=== PATIENT | female | born 1965 | race Caucasian/White ===

== ENCOUNTER 2018-08-08 12:00 | Day surgery (SDC) | payer BC ==
[~2018-08-08] VITALS: Ht 170.2 cm; Wt 59.0 kg
[2018-08-08 00:09] LABS: BILIRUBIN,URINE NEGATIVE (NEGATIVE); BLOOD, URINE 3+ (NEGATIVE); CLARITY/URINE SL HAZY (CLEAR); COLOR,URINE YELLOW (YELLOW); GLUCOSE,URINE NEGATIVE (NEGATIVE); KETONES,URINE NEGATIVE (NEGATIVE); LEUKOCYTE ESTERASE ,URINE NEGATIVE (NEGATIVE); NITRITE, URINE NEGATIVE (NEGATIVE); PROTEIN URINE 1+ (NEGATIVE); UROBILINOGEN,URINE 0.2 (0.2-1.0)
[2018-08-08 00:10] LABS: CALCIUM 8.7 mg/dL (8.4-11.0); CREATININE 0.92 mg/dL (0.55-1.30); NEUTROPHILS # (AUTO) 1.9 K/uL (1.8-7.7); RED CELL DISTRIBUTION WIDTH 12.1 % (9.0-15.0)
[2018-08-08 00:13] LABS: BASOPHILS % (AUTO) 0.9 % (0.0-2.0); HEMATOCRIT 39.4 % (36-48); HEMOGLOBIN 13.5 g/dL (12.0-16.0); LYMPHOCYTES # (AUTO) 1.1 K/uL (1.0-5.5); LYMPHOCYTES % (AUTO) 33.3 % (20.5-51.5); MEAN CORPUSCULAR HEMOGLOBIN 32 pg (27-31); MEAN CORPUSCULAR HGB CONC 34 % (32-36); MEAN CORPUSCULAR VOLUME 92 fL (79.0-98.0); MONOCYTES # (AUTO) 0.3 K/uL (0.0-1.0); MONOCYTES % (AUTO) 10.2 % (1.7-9.3); NEUTROPHILS % (AUTO) 54.6 % (40.0-70.0); PLATELET COUNT (AUTO) 261 K/uL (130-430); RED BLOOD CELL COUNT(AUTO) 4.28 MIL/uL (4.2-6.2); WHITE BLOOD COUNT (AUTO) 3.3 K/uL (4.8-10.8)
[2018-08-08 00:22] LABS: POTASSIUM 2.8 mmol/L (3.5-5.1)
[2018-08-08 00:32] LABS: BACTERIA,URINE FEW /HPF (None Seen); RBC,URINE 20-50 /HPF (0-3); WBC,URINE 0-3 /HPF (0-3)
[2018-08-08 00:33] LABS: CALCIUM OXALATE CRYSTALS,UR 0-10 /HPF (None Seen)
[~2018-08-08 12:00] MED LIST: CEFAZOLIN 1 GM IVPB PREMIX 50 ML IV ONE
[2018-08-08] MEDS ORDERED: NEOSTIGMINE METHYLSULFATE 1 MG/ML, 10 ML VIAL IVP ONE (12:45)
[2018-08-08] MEDS ORDERED: MEPERIDINE HCL/PF 100 MG/ML AMP IM ONE (12:45)
[2018-08-08] MEDS ORDERED: ONDANSETRON HCL 4 MG/2 ML VIAL IVP ONE ×2 (12:45)
[2018-08-08] MEDS ORDERED: ROCURONIUM BROMIDE 10 MG/ML (ZEMURON) IV ONE (12:45)
[2018-08-08] MEDS ORDERED: KETOROLAC TROMETHAMINE 30 MG VIAL IVP ONE (12:45)
[2018-08-08] MEDS ORDERED: GLYCOPYRROLATE 0.2 MG/ML VIAL IJ ONE (12:45)
[2018-08-08] MEDS ORDERED: MIDAZOLAM HCL 5 MG/5 ML VIAL IVP ONE (12:45)
[2018-08-08] MEDS ORDERED: BUPIVACAINE /EPINEPHRINE/PF 0.5% 30 ML VIAL INJ ONE (12:45)
[2018-08-08] MEDS ORDERED: LIDOCAINE 2%, 20 ML MDV INJ ONE (12:45)
[2018-08-08] MEDS ORDERED: NS IRRIG SOLN 1000 ML IR ONE (12:45)
[2018-08-08] MEDS ORDERED: BUPIVACAINE /PF 0.5% 30 ML VIAL INJ ONE (12:45)
[2018-08-08] MEDS ORDERED: SEVOFLURANE 15 MIN GAS INH ONE (12:45)
[2018-08-08] MEDS ORDERED: PROPOFOL 200MG/ 20ML VIAL (DIPRIVAN) IV ONE (12:45)
[2018-08-08] MEDS ORDERED: DEXAMETHASONE SOD PHOSPHATE 4 MG/ML VIAL IVP ONE (12:45)
[2018-08-08] MEDS ORDERED: LR 1,000 ML IV.SOLN IV ONE (12:45)
[2018-08-08] MEDS ORDERED: fentaNYL CITRATE/PF 100 MCG/2 ML AMP IVP ONE (12:45)
[2018-08-08] MEDS ORDERED: KETOROLAC TROMETHAMINE 30 MG VIAL IVP PRN (13:30)
[2018-08-08] MEDS ORDERED: fentaNYL CITRATE/PF 100 MCG/2 ML AMP IVP PRN ×2 (13:30)
[2018-08-08] MEDS ORDERED: ONDANSETRON HCL 4 MG/2 ML VIAL IVP PRN (13:30)
[2018-08-08] MEDS ORDERED: ROPIVACAINE 0.2% 100 ML ONE ×2 (17:30→17:40)
[2018-08-08] MEDS ORDERED: MIDAZOLAM HCL 2 MG/2 ML VIAL (VERSED) ONE (17:30)
[2018-08-08] MEDS ORDERED: fentaNYL CITRATE/PF 100 MCG/2 ML AMP ONE (18:04)
[2018-08-08 18:25] VITALS: BP_SYST 126
[2018-08-08] MEDS ORDERED: NALOXONE HCL 2 MG/2 ML SYR IVP ONE (18:30)
== END 2018-08-08 18:50 | disposition home or self-care (01) ==
LOC: SDS 12:00 → SMU 12:07 → SDS 18:50
PROVIDERS: ATTEND Specialist
DX: N83.8 Other noninflammatory disorders of ovary, fallopian tube and broad ligament (principal); N81.10 Cystocele, unspecified; N81.6 Rectocele; Z90.710 Acquired absence of both cervix and uterus; Z98.890 Other specified postprocedural states; Z79.899 Other long term (current) drug therapy; E03.9 Hypothyroidism, unspecified; Z82.49 Family history of ischemic heart disease and other diseases of the circulatory system; Z80.3 Family history of malignant neoplasm of breast
CPT/HCPCS: 36415; 57260; 58661; 80048; 81000; 85025; 88305; J0690; J1100; J1885; J2001; J2175; J2250; J2310; J2405; J2704; J2710; J2795; J3010; J3465; J3490 ×2; J7120; E0190